=== PATIENT | female | born 1995 | race Two or more races ===

== ENCOUNTER 2024-09-18 07:39 | Emergency (ER) | payer MEDICAID ==
[~2024-09-18] VITALS: Ht 157.5 cm; Wt 80.3 kg
--- NOTE | 2024-09-18 07:50 | ED.PDOC ---
History of Present Illness HPI Comments 28F previously healthy presents with several days of worsening left lateral foot pain. 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 She walks extensively with weight every day. She reports the pain is worsening despite anything she has tried. Feeling that makes it feel better is when she rests. She denies any trauma, falls, or any injuries that she can think of. She took Motrin with some relief. Chief Complaint: Lower Extremity Time Seen by MD: 07:44 Allergies: Coded Allergies: NO KNOWN ALLERGIES (Unverified , 09/18/24) Information Source: Patient Mode of Arrival: Ambulatory Past Medical History PAST MEDICAL HISTORY: Denies Surgical History: Denies all surgeries [employer] History: No Pertinent [employer] History All Other Systems: Reviewed and Negative Physical Exam General Appearance: Normal HEENT: NOT DONE Neck: NOT DONE Respiratory: NOT DONE Cardiovascular: NOT DONE Breast Exam: Deferred Gastrointestinal: NOT DONE Genitalia: Deferred Pelvic: Deferred Rectal: Deferred Extremities: Other (Left lateral foot and heel tenderness) Neurologic: NOT DONE Cerebellar Function: NOT DONE Reflexes: NOT DONE Skin: NOT DONE Lymphatic: NOT DONE Was a procedure done? Was a procedure done?: No Differential Dx Considerations may include: Musculoskeletal strain, plantar fasciitis, ankle sprain, X-Ray, Labs, Meds, VS Vital Signs Date Time Temp Pulse Resp B/P (MAP) Pulse Ox O2 Delivery O2 Flow Rate FiO2 09/18/24 07:49 97.8 83 14 113/81 (92) 98 Time of 1ST Reevaluation: 08:23 Reevaluation 1ST: Unchanged Patient Education/Counseling: Diagnosis, Treatment Family Education/Counseling: No Family Present Departure 1 Departure Time of Disposition: 08:23 (Patient likely with plantar fasciitis. We will discharge patient home with outpatient follow up.) Impression: Primary Impression: Plantar fasciitis of left foot Disposition: 01 HOME / SELF CARE / HOMELESS Condition: Stable Additional Instructions: You likely have plantar fasciitis. This is inflammation of the soft tissues on your foot. You can use a Rubz ball that may alleviate the pain. For pain you can take the followinam: Ibuprofen 400mg with food Noon: Acetaminophen 1000mg 4pm: Ibuprofen 400mg with food 8pm: Acetaminophen 1000mg You should follow up with your regular doctor within one week to ensure you are doing better. If your symptoms worsen or you have any other concerns then please return to the ER. Discharged With: Self Critical Care Note Critical Care Time?: No Stability Stability form required: No Heart Score Heart Score: Heart Score Response (Comments) Value History N/A 0 EKG N/A 0 Age N/A 0 Risk Factors N/A 0 Troponin N/A 0 Total 0 EDITA FELIZ MD Sep 18, 2024 07:50
[2024-09-18 08:40] VITALS: BP 148/82; PULSE 86; RESP 16; TEMP 98.6; O2SAT 98
== END 2024-09-18 09:15 | disposition home or self-care (01) ==
LOC: ER 07:39
DX: M72.2 Plantar fascial fibromatosis (principal)